=== PATIENT | female | born 1975 | race Caucasian/White ===

== ENCOUNTER 2016-10-05 08:20 | Emergency (ER) | payer OTHER | END 2016-10-05 10:21 | disposition home or self-care (01) | LOC: ER 08:20 | DX: S60.221A Contusion of right hand, initial encounter (principal); W22.09XA Striking against other stationary object, initial encounter; Y92.000 Kitchen of unspecified non-institutional (private) residence as the place of occurrence of the external cause; J45.909 Unspecified asthma, uncomplicated; E03.9 Hypothyroidism, unspecified; Z79.899 Other long term (current) drug therapy; Z88.0 Allergy status to penicillin; Z88.1 Allergy status to other antibiotic agents; Z88.6 Allergy status to analgesic agent; Z88.8 Allergy status to other drugs, medicaments and biological substances | CPT/HCPCS: 73130; 99070; 99283-25 ==

== ENCOUNTER 2016-10-19 08:15 | Emergency (ER) | payer OTHER | END 2016-10-19 09:39 | disposition home or self-care (01) | LOC: ER 08:15 | DX: M79.644 Pain in right finger(s) (principal); E11.9 Type 2 diabetes mellitus without complications; F31.9 Bipolar disorder, unspecified; F43.10 Post-traumatic stress disorder, unspecified; F32.9 Major depressive disorder, single episode, unspecified; F20.9 Schizophrenia, unspecified; F17.210 Nicotine dependence, cigarettes, uncomplicated; Z79.899 Other long term (current) drug therapy; Z79.891 Long term (current) use of opiate analgesic; Z88.0 Allergy status to penicillin; Z88.6 Allergy status to analgesic agent; Z88.1 Allergy status to other antibiotic agents; Z88.8 Allergy status to other drugs, medicaments and biological substances; Z79.84 Long term (current) use of oral hypoglycemic drugs | CPT/HCPCS: 99282 ==

== ENCOUNTER 2016-11-02 11:16 | Emergency (ER) | payer OTHER | END 2016-11-02 14:17 | disposition home or self-care (01) | LOC: ER 11:16 | DX: S93.401A Sprain of unspecified ligament of right ankle, initial encounter (principal); S93.601A Unspecified sprain of right foot, initial encounter; W01.0XXA Fall on same level from slipping, tripping and stumbling without subsequent striking against object, initial encounter; Y92.009 Unspecified place in unspecified non-institutional (private) residence as the place of occurrence of the external cause; J45.909 Unspecified asthma, uncomplicated; Z79.899 Other long term (current) drug therapy; Z88.0 Allergy status to penicillin; Z88.2 Allergy status to sulfonamides; Z88.8 Allergy status to other drugs, medicaments and biological substances | CPT/HCPCS: 73630; 99070; 99283-25 ==

== ENCOUNTER 2016-12-31 09:05 | Emergency (ER) | payer OTHER | END 2016-12-31 10:00 | disposition home or self-care (01) | LOC: ER 09:05 | DX: M79.605 Pain in left leg (principal); J45.909 Unspecified asthma, uncomplicated; F32.9 Major depressive disorder, single episode, unspecified; F17.210 Nicotine dependence, cigarettes, uncomplicated; Z88.5 Allergy status to narcotic agent; Z88.0 Allergy status to penicillin; Z88.1 Allergy status to other antibiotic agents; Z88.8 Allergy status to other drugs, medicaments and biological substances | CPT/HCPCS: 93971; 99070; 99283-25 ==

== ENCOUNTER 2017-02-02 07:16 | Emergency (ER) | payer OTHER | END 2017-02-02 08:59 | disposition home or self-care (01) | LOC: ER 07:16 | DX: B86 Scabies (principal); J45.909 Unspecified asthma, uncomplicated; F41.9 Anxiety disorder, unspecified; F20.9 Schizophrenia, unspecified; F31.9 Bipolar disorder, unspecified; F17.210 Nicotine dependence, cigarettes, uncomplicated; Z79.899 Other long term (current) drug therapy; Z88.1 Allergy status to other antibiotic agents; Z88.6 Allergy status to analgesic agent; Z88.0 Allergy status to penicillin | CPT/HCPCS: 99282 ==